=== PATIENT | male | born 1950 | race Caucasian/White ===

== ENCOUNTER 2021-12-02 08:39 | Day surgery (SDC) | payer MEDICARE, SELFPAY ==
[2021-12-02 09:05] VITALS: BP 142/70; PULSE 51; RESP 18; TEMP 36.3; O2SAT 99
[2021-12-02] MEDS: Tropicam./Phenyleph. (1/2.5%) 5 ML BTL OD ×3 (09:25→09:32)
--- NOTE | 2021-12-02 10:00 | W.ANESPRE ---
General Info Date of Service Date Performed: 12/02/21 Height: 6 ft Weight: 84.5 kg Body Mass Index (BMI): 25.2 Surgical Procedure: Operation Date: 12/02/21 10:40 Proposed Procedure Side Surgeon p Cataract Extraction with IOL Implant Right Devan Newsome MD Meds Allergies and Home Medications Allergies Allergy/AdvReac Type Severity Reaction Status Date / Time lisinopril AdvReac Intermediate racing Unverified 11/29/21 11:35 heart environmental Allergy Unknown Uncoded 11/29/21 11:35 Home Medication Medication Instructions Recorded metoprolol tartrate 50 mg tablet 50 mg PO BID 02/16/13 aspirin 81 mg capsule,delayed 81 mg PO DAILY 11/29/21 release atorvastatin 20 mg tablet 20 mg PO HS 11/29/21 duloxetine 30 mg capsule,delayed 30 mg PO DAILY 11/29/21 release (Cymbalta) dutasteride 0.5 mg capsule 0.5 mg PO DAILY 11/29/21 (Avodart) irbesartan 150 mg tablet 150 mg PO DAILY 11/29/21 nitroglycerin 0.4 mg sublingual 0.4 mg sublingual DIRECTED 11/29/21 tablet nystatin-triamcinolone 100,000 1 applic topical DIRECTED 11/29/21 unit/g-0.1 % topical cream pantoprazole 40 mg tablet,delayed 40 mg PO DAILY 11/29/21 release tamsulosin 0.4 mg capsule 0.4 mg PO DAILY 11/29/21 Current Visit Medications: Current Medications Generic Name Dose Route Start Last Admin Trade Name Freq PRN Reason Stop Dose Admin Acetaminophen 1,000 mg 12/02/21 06:00 Acetaminophen 500 Mg Tab PO Q4H PRN PRN Miscellaneous Medication 0 ml 12/02/21 06:00 Prednisolone 1%, Moxifloxacin 0.5%, Nepafenac 0.1% 5ml Btl OD DIRECTED [facility] Miscellaneous Medication 0 ml 12/02/21 06:00 12/02/21 09:32 Tropicam./Phenyleph. (1/2.5%) 5 Ml Btl OD 1 drp DIRECTED [facility] Administration Tetracaine HCl 0 ml 12/02/21 06:00 Tetracaine 0.5% 4 Ml Btl OD DIRECTED [facility] Medical History Medical History ASCVD (arteriosclerotic cardiovascular disease) BPH (benign prostatic hyperplasia) CAD (coronary artery disease) Cataract Drug-induced erectile dysfunction Dysthymia Esophagitis GERD (gastroesophageal reflux disease) HTN (hypertension) Myocardial infarction 2014- / With cardiology Dr. Mohr out [facility], last seen with stress test (per pt. states came back WNL) 08/2021. Primary insomnia Surgical History Surgical History History of cardiac catheterization x1 stent History of nasal surgery Hx of cataract surgery Hx of colonoscopy Hx of foot surgery Hx of inguinal hernia repair Tobacco Smoking/Tobacco Use Status: Former Tobacco Use Alcohol Alcohol Intake: current Alcohol intake frequency: 0-2 drinks per day Substance Use Substance use: Never Substance use type: does not use Vital Signs and Lab Results Vital Signs Most Recent Vital Signs in EMR: Most Recent Vital Signs Temp Pulse Resp BP Pulse Ox 36.3 C L 51 L 18 142/70 H 99 12/02/21 09:05 12/02/21 09:05 12/02/21 09:05 12/02/21 09:05 12/02/21 09:05 Lab Results Blood Type / Crossmatch: No Data to Display Complete Blood Count: No Data to Display Complete Metabolic Panel: No Data to Display Liver Function Panel: No Data to Display Coagulation Panel: No Data to Display Cardiac Panel: No Data to Display Arterial Blood Gas: No Data to Display Venous Blood Gas: No Data to Display Pancreas Panel: No Data to Display Thyroid Panel: No Data to Display Infectious Disease: No Data to Display Blood Cultures: No Data to Display Toxicology Panel: No Data to Display Imaging and Studies Imaging and Studies Study information below may be from another EMR and interpreted by another provider. Please see original notes in EMR for more complete details. Stress Test Summary: 07/31/21: Normal Anesthesia Assessment and Plan Anesthesia History Personal History: No History of Anesthesia Complications Family History: No Family History of Anesthesia Complications Exercise Tolerance Exercise Tolerance: Metabolic Equivalents>4 Pertinent Negatives Pertinent Negatives: No Symptoms of GERD Cardiac & Pulmonary Exam Cardiac Exam: Normal S1/S2 Heart Sounds Pulmonary Exam: Clear Bilateral Breath Sounds Implantable Cardiac Device Does patient have a Pacemaker or an ICD?: No Airway Exam Known Difficult Airway: No Mallampati Class: 1 Mouth Opening: Normal (> 3cm) Thyromental Distance: Greater than 3 cm Neck Range of Motion: Full ROM Neck Circumference: Normal Teeth Condition: Normal Dentition ASA Classification ASA Score: ASA 3 Emergency Case?: No NPO Status NPO Status: NPO Clears >2 hours, Solids >8 hours Anesthesia Plan Resuscitation Status: Full Code Anesthesia Technique: MAC Anesthesia Airway Planned: Natural Airway Monitors Used: Standard Monitors
[2021-12-02 10:01] VITALS: BMI 25.2
[2021-12-02] MEDS: Tetracaine 0.5% 4 ML BTL OD (10:42)
[2021-12-02] MEDS: Balanced Salt Soln.-PLUS 500 ML BAG (10:43)
[2021-12-02] MEDS: Duovisc Viscoelastic System EACH 1 EACH (10:44)
[2021-12-02] MEDS: Lidocaine 1% Pres-Free 5 ML VIAL (10:44)
[2021-12-02] MEDS: Lidocaine 2% Jelly 6 ML SYR (10:45)
[2021-12-02] MEDS: Povidone-Iodine Ophth 30 ML BTL (10:46)
[2021-12-02 10:58] VITALS: BP 146/74; PULSE 54; RESP 17; TEMP 36.7; O2SAT 97
--- NOTE | 2021-12-02 11:01 | W.PM.DSUDISC ---
Discharge Plan Disposition Patient Disposition: HOME Condition: Good Discharge Details Attending Provider: Devan Newsome Primary Care Provider: Osmel Jung Home Meds and New Rx's Prescriptions: No Action metoprolol tartrate 50 MG tablet 50 mg PO BID atorvastatin 20 mg Tablet 20 mg PO HS aspirin 81 mg Capsule,Delayed Release(Dr/Ec) 81 mg PO DAILY tamsulosin 0.4 mg Capsule 0.4 mg PO DAILY pantoprazole 40 mg Tablet,Delayed Release (Dr/Ec) 40 mg PO DAILY nystatin-triamcinolone 100,000-0.1 unit/g-% Cream 1 applic TOPICAL DIRECTED nitroglycerin 0.4 mg Tablet, Sublingual 0.4 mg sublingual DIRECTED irbesartan 150 mg Tablet 150 mg PO DAILY dutasteride [Avodart] 0.5 mg capsule 0.5 mg PO DAILY duloxetine [Cymbalta] 30 mg capsule,delayed release(DR/EC) 30 mg PO DAILY Discharge Instructions Stand Alone Forms: Post-op Topical Cataract, Lawrence La ([facility]) Discharge Orders Discharge Orders: Discharge Order (Routine); Ordered 12/02/21 Ordered By: Devan Newsome DS: Diagnosis Discharge Diagnosis (1) Nuclear sclerotic cataract of right eye: Status: Resolved (2) Cortical cataract of right eye: Status: Resolved
--- NOTE | 2021-12-02 11:02 | ROE_ITS ---
Date of service: 12/02/21 Time of Service: 11:02 Operative Note Operative Note DATE OF PROCEDURE: 12/02/21 PRE-OP DIAGNOSIS: Nuclear/posterior subcapsular cataract, right eye POST-OP DIAGNOSIS: same PROCEDURE: Cataract extraction using phacoemulsification with intraocular lens implant, right eye SURGEON: Devan Newsome ANESTHESIA TYPE: Local By Surgeon and MAC Refer to Anesthesia Record ESTIMATED BLOOD LOSS: 0 PATHOLOGY: none sent COMPLICATIONS: None Patient was transported to: same day Patient's condition: stable Implants: [employer] Bull/CARL Tecnis [id number] Indications: Progressive visual loss due to cataract, right eye Procedure Description: CATARACT SURGERY OPERATIVE REPORT PREOPERATIVE DIAGNOSIS: 1. Nuclear/posterior subcapsular cataract, right eye POSTOPERATIVE DIAGNOSIS: Same OPERATION: 1. Cataract extraction using phacoemulsification with posterior chamber intraocular lens implant, right eye. IOL: IOL Inspector And Sorter/Model: [employer] & Bull / CARL Tecnis [id number] IOL Power: + 21.5 diopters IOL Serial Number: [id number] Optic Diameter: 6.0mm Haptic/Overall Diameter: 13.0mm PHACO INFO: James Rivonourion Vision System with OZil and Active Fluidics Cumulative Dispersed Energy (CDE): 7.36 seconds SURGEON: Devan Newsome MD, DAHIANA ANESTHESIA: Monitored Anesthesia Care (MAC), with local sub-tenon's anesthetic infiltration COMPLICATIONS: None SPECIMENS: None INDICATIONS FOR PROCEDURE: The patient is a 71-year-old gentleman with history of diminished visual acuity in his right eye secondary to the development of nuclear/posterior subcapsular cataract. He has previously undergone cataract surgery in his left eye in 2011 he now presents for cataract surgery in the right eye. PROCEDURE: The correct surgical eye was identified and marked as the right eye and the pupil was dilated in the preoperative area using mydriatics and cycloplegics. The dilated pupil size was 7.0 mm. The patient elected to proceed without oral sedation. The patient was brought to the operating room where cardiopulmonary monitoring was instituted and surgical time-out was performed, confirming the correct operative eye and IOL power. Topical anesthesia was administered and ophthalmic povidone-iodine 5% was i nstilled into the conjunctival fornices. Lidocaine gel was applied to the cornea and the gerardo-ocular area was prepped with Betadine 10% solution and draped in the usual sterile fashion for intraocular surgery, including an aperture drape. A Tegaderm transparent film dressing was cut in half and used to cover the lashes and lid margins. Care was taken to sequester the lashes and lid margins under the Tegaderm dressing. A lid speculum was placed between the lids of the operative eye and the James Lux[employer] Revalia operating microscope was maneuvered into position. Aletha scissors were then used to make a conjunctival buttonhole approximately 6mm posterior to the limbus in the inferonasal quadrant. Blunt dissection was carried out to expose bare sclera, and a blunt-tipped sub-tenon?s anesthesia cannula was introduced and passed posteriorly along the globe where non- preserved plain lidocaine was injected into posterior sub-Tenon?s space. A sideport knife was used to make a paracentesis port inferotemporally. Intraocular phenylephrine/lidocaine was injected into the anterior chamber. The anterior chamber was filled with viscoelastic. A keratome knife was used to construct a 2-plane near-clear corneal tunnel extending 2.0mm into clear cornea superiortemporally. A flap was raised on the anterior capsule and capsulorhexis forceps were used to complete a continuous curvilinear capsulorhexis of 5.5 mm. Balanced salt solution was then used to perform cortical cleaving hydrodissection and nuclear hydrodelineation until the lens could be freely rotated within the capsular bag. The lens nucleus was then disassembled and removed within the capsular bag and iris plane using phacoemulsification. Residual cortical material was removed using the I/A handpiece. The posterior capsule was carefully polished to remove as much residual lens epithelial cells as safely possible. The capsular bag was then inflated and the anterior chamber deepened with viscoelastic. The lens implant described above was inserted into the capsular bag using the CARL [place] Injector. A Kuglen hook was used to dial the IOL into position. Residual viscoelastic was then removed first from posterior to the IOL, then from the anterior chamber using the I/A handpiece. The lens implant was noted to center nicely within the capsular bag. The incisions were stromally hydrated, and the anterior chamber was reformed using BSS. Then 0.5cc of moxifloxacin 1.0mg/ml were injected into the capsular bag and anterior chamber. The incisions were checked with a Weck spear and found to be secure. Several drops of ophthalmic povidone-iodine 5% were then applied to the eye followed by two drops of Imprimis combination prednisolone/moxifloxacin/nepafenac solution. The drapes were removed and a clear plastic protective eye shield was placed over the eye. The patient was then returned to Same Day Surgery in stable condition.
--- NOTE | 2021-12-02 12:02 | W.ANESPOSTOP ---
Postoperative Evaluation Date, Time and Location Date Performed: 12/02/21 Time Performed: 11:02 Patient Location: Day Surgery Unit Vital Signs Most Recent Imported Vital Signs: Most Recent Vital Signs Temp Pulse Resp BP Pulse Ox 36.7 C 54 L 17 146/74 H 97 12/02/21 10:58 12/02/21 10:58 12/02/21 10:58 12/02/21 10:58 12/02/21 10:58 Pain Score Most Recent Pain Score: Most Recent Pain Score Pain Level 0 12/02/21 10:58 Assessment Mental Status: Awake (Alert & Oriented to Patient Baseline) Airway and Respiratory Function: Patent airway with normal (patient baseline) respiratory exam Cardiovascular Function: Hemodynamically Stable Hydration Status: Adequately Hydrated Nausea & Vomiting: No Nausea or Vomiting Pain: Pt. Denies Any Pain Peripheral Nerve Block: Patient did not receive a nerve block
== END 2021-12-02 11:18 | disposition home or self-care (01) ==
LOC: SUR 08:39
PROVIDERS: PCP Family Medicine; Visit Provider Ophthalmology
PROC: (CPT 66984; principal; 2021-12-02 10:30)
DX: H25.11 Age-related nuclear cataract, right eye (principal); I25.10 Atherosclerotic heart disease of native coronary artery without angina pectoris; I10 Essential (primary) hypertension
CPT/HCPCS: 66984; V2632

== ENCOUNTER 2022-10-14 08:21 | Outpatient (REF) | payer MEDICARE, SELFPAY ==
--- NOTE | 2022-10-14 07:45 | SKI_PTH ---
PATIENT: Virgil Jones LOC: N U#:[id number] AGE/SX: 72/M ROOM: RE10/14/[address]: Torres Raya MD : [id number] BED: DIS: 10/14/2022 SPEC #: [id number] RECD: 10/14/22 17:17 STATUS: ROGER RENissa #: [id number] CALEB: 10/14/22 07:[address]: Torres Raya DEPT: Surgical Specimen RECD BY: Shannon Adan ENTERED: 10/14/22 17:18 SP TYPE: DINA MCDONALD DR: Iris Mosquera Tissues: 1 - SKIN BIOPSY(SHAVE/PUNCH) Procedures: SKIN LEVEL 4 Comments: [id number]
== END 2022-10-14 08:22 | disposition home or self-care (01) ==
LOC: LBN 08:21
PROVIDERS: PCP Family Medicine; Visit Provider Otolaryngology
DX: D04.4 Carcinoma in situ of skin of scalp and neck (principal)
CPT/HCPCS: 88305